=== PATIENT | female | born 1960 | race African-American/Black ===

== ENCOUNTER 2016-07-31 02:39 | Emergency (ER) | payer OTHER ==
[~2016-07-31] VITALS: Ht 170.2 cm; Wt 150.0 kg
[~2016-07-31 02:39] MED LIST: ALBU6.7H2 IH; AMLO10TA4 PO; AMLO5TAB2 PO; ASPI-1035 PO; BENA20TA77 PO; CEPH500C2 PO; CODE118S2 PO; DOCU-150 PO; DOXA2TAB2 PO; DOXA4TAB2 PO; IBUP-1509 PO; IPRA3AMP9 INH; OXYC-100 PO; TIZA4TAB4 PO; TRAM50TA3 PO
[2016-07-31 03:20] VITALS: BP 161/92
[2016-07-31] MEDS ORDERED: METHYLPREDNISOLONE SOD SUCC 125 MG/2 ML VIAL IV STA (03:35)
[2016-07-31] MEDS ORDERED: ALBUTEROL (0.083%) 2.5MG/3ML NEB HHN STA (03:35)
[2016-07-31] MEDS ORDERED: IPRATROPIUM BROMIDE (0.02%) 0.5MG/2.5ML NEB HHN STA (03:35)
[2016-07-31 03:50] LABS: BASOPHILS % 0.9 % (0.0-2.0); EOSINOPHILS % 1.1 % (0.0-5.0); HEMATOCRIT. 35.7 % (36.0-48.0); HEMOGLOBIN. 11.6 g/dL (12.0-16.0); LYMPHOCYTES % 26.2 % (20.0-50.0); MEAN CORPUSCULAR HEMOGLOBIN 27.7 pg (28.0-32.0); MEAN CORPUSCULAR VOLUME 85.8 fL (81.0-99.0); MEAN PLATELET VOLUME 8.9 fl (7.4-10.4); MONOCYTES % 10.4 % (2.0-8.0); NEUTROPHILS % 61.4 % (40.0-76.0); PLATELET 219 x1000/uL (130-400); RED BLOOD CELL COUNT 4.16 mill/uL (4.2-5.4); RED CELL DISTRIBUTION WIDTH 13.6 % (11.6-14.6)
[2016-07-31 04:07] LABS: CARBON DIOXIDE 28 mEq/L (21-32); CHLORIDE 107 mEq/L (98-107); TROPONIN I < 0.02 ng/mL (0.00-0.04)
[2016-07-31] MEDS ORDERED: ALBUTEROL (0.5%) 2.5MG/0.5ML NEB HHN ONE (04:08)
== END 2016-07-31 06:38 | disposition home or self-care (01) ==
LOC: ER 02:39
DX: J45.901 Unspecified asthma with (acute) exacerbation (principal); I50.9 Heart failure, unspecified; I11.0 Hypertensive heart disease with heart failure; J44.9 Chronic obstructive pulmonary disease, unspecified; E66.01 Morbid (severe) obesity due to excess calories; Z79.82 Long term (current) use of aspirin; Z96.659 Presence of unspecified artificial knee joint; Z96.649 Presence of unspecified artificial hip joint
CPT/HCPCS: 36415; 71010; 80048; 83880; 84484; 85025; 93005; 94644; 96374; 99285; J2930; J7611; Z7610

== ENCOUNTER 2016-08-09 09:47 | Observation (INO) | payer OTHER ==
[~2016-08-09] VITALS: Ht 170.2 cm; Wt 168.7 kg
[~2016-08-09 09:47] MED LIST changes: -ASPI-1035 PO; +ASPI-1158 PO; +FURO-152 PO; +POTA20TA82 PO
[2016-08-09 10:48] LABS: BASOPHILS % 0.7 % (0.0-2.0); EOSINOPHILS % 0.2 % (0.0-5.0); HEMATOCRIT. 41.1 % (36.0-48.0); HEMOGLOBIN. 13.1 g/dL (12.0-16.0); LYMPHOCYTES % 15.8 % (20.0-50.0); MEAN CORPUSCULAR HEMOGLOBIN 27.4 pg (28.0-32.0); MEAN CORPUSCULAR VOLUME 85.6 fL (81.0-99.0); MEAN PLATELET VOLUME 8.9 fl (7.4-10.4); MONOCYTES % 9.1 % (2.0-8.0); NEUTROPHILS % 74.2 % (40.0-76.0); PLATELET 257 x1000/uL (130-400); RED CELL DISTRIBUTION WIDTH 13.9 % (11.6-14.6)
[2016-08-09 10:50] LABS: CHLORIDE 104 mEq/L (98-107)
[2016-08-09] MEDS ORDERED: IPRATROPIUM BROMIDE (0.02%) 0.5MG/2.5ML NEB HHN STA (10:50)
[2016-08-09] MEDS ORDERED: METHYLPREDNISOLONE SOD SUCC 125 MG/2 ML VIAL IV STA (10:50)
[2016-08-09 10:51] LABS: PROTHROMBIN TIME 10.2 sec
[2016-08-09 10:59] LABS: CARBON DIOXIDE 35 mEq/L (21-32); TROPONIN I < 0.02 ng/mL (0.00-0.04)
[2016-08-09] MEDS ORDERED: KETOROLAC 30MG/ML VIAL IV ONE (11:00)
[2016-08-09 11:13] LABS: *AMPHETAMINES SCREEN URINE NEGATIVE (NEGATIVE); *BARBITURATES SCREEN URINE NEGATIVE (NEGATIVE); *BENZODIAZEPINES SCREEN URINE NEGATIVE (NEGATIVE); *COCAINE SCREEN URINE NEGATIVE (NEGATIVE); CANNABINOID URINE SCREEN NEGATIVE (NEGATIVE); METHADONE URINE SCREEN NEGATIVE (NEGATIVE); OPIATES URINE SCREEN PRESUMTIVE POSITIVE (NEGATIVE); PHENCYCLIDINE URINE SCREEN NEGATIVE (NEGATIVE)
[2016-08-09] MEDS: ALBUTEROL (0.083%) 2.5MG/3ML NEB HHN SCH ×3 (12:00→13:00)
[2016-08-09] MEDS ORDERED: ACETAMINOPHEN 325MG TABLET PO PRN (15:15)
[2016-08-09] MEDS ORDERED: ONDANSETRON HCL 4MG/2ML VIAL IV PRN (15:15)
[2016-08-09] MEDS ORDERED: CLONIDINE 0.1MG TABLET PO PRN (15:15)
[2016-08-09] MEDS ORDERED: TRAMADOL 50MG TABLET PO PRN (15:30)
[2016-08-09] MEDS: HYDROCODONE/ACETAMINOPHEN 5/325MG TABLET PO PRN ×2 (16:20→19:02)
[2016-08-09 16:45] VITALS: BP 138/79
[2016-08-09 17:00] VITALS: BP 138/79
[2016-08-09] MEDS: ASPIRIN 81MG EC TABLET PO SCH (19:02)
[2016-08-09 20:00] VITALS: BP 117/66
[2016-08-09] MEDS ORDERED: LEVOFLOXACIN 500MG PREMIX 100 ML IV SCH (20:00)
[2016-08-09] MEDS: IPRATROPIUM/ALBUTEROL 0.5-3(2.5)MG/3ML NEB INH SCH (20:46)
[2016-08-09] MEDS: ENOXAPARIN 40MG/0.4ML SYR SUBCUT SCH (21:05)
[2016-08-10] VITALS: BP 156/83
[2016-08-10] MEDS: IPRATROPIUM/ALBUTEROL 0.5-3(2.5)MG/3ML NEB INH SCH ×4 (00:23→20:41)
[2016-08-10 04:00] VITALS: BP 168/114
[2016-08-10] MEDS: HYDROCODONE/ACETAMINOPHEN 5/325MG TABLET PO PRN ×3 (05:13→18:27)
[2016-08-10 07:40] LABS: HDL CHOLESTEROL 85 mg/dL (40-59); LDL CHOLESTEROL 73 mg/dL (5-100); T4 FREE 0.88 ng/dL (0.76-1.46); TROPONIN I < 0.02 ng/mL (0.00-0.04)
[2016-08-10 08:00] VITALS: BP 134/93
[2016-08-10 08:03] LABS: BASOPHILS % 0.1 % (0.0-2.0); HEMATOCRIT. 39.5 % (36.0-48.0); HEMOGLOBIN. 12.5 g/dL (12.0-16.0); LYMPHOCYTES % 11.8 % (20.0-50.0); MEAN CORPUSCULAR HEMOGLOBIN 26.9 pg (28.0-32.0); MEAN CORPUSCULAR VOLUME 85.1 fL (81.0-99.0); MEAN PLATELET VOLUME 9.7 fl (7.4-10.4); MONOCYTES % 8.9 % (2.0-8.0); NEUTROPHILS % 79.2 % (40.0-76.0); PLATELET 249 x1000/uL (130-400); RED BLOOD CELL COUNT 4.64 mill/uL (4.2-5.4); RED CELL DISTRIBUTION WIDTH 13.5 % (11.6-14.6)
[2016-08-10] MEDS: BENAZEPRIL 20MG TABLET PO SCH (08:28)
[2016-08-10] MEDS: DOXAZOSIN MESYLATE 2MG TABLET PO SCH (08:28)
[2016-08-10] MEDS: TIZANIDINE HCL 4MG TABLET PO SCH (08:29)
[2016-08-10] MEDS: AMLODIPINE 10MG TABLET PO SCH (08:29)
[2016-08-10] MEDS: DOCUSATE SODIUM 100MG CAPSULE PO SCH (08:29)
[2016-08-10] MEDS: ASPIRIN 81MG EC TABLET PO SCH (08:29)
[2016-08-10] MEDS: ENOXAPARIN 40MG/0.4ML SYR SUBCUT SCH ×2 (08:30→20:36)
[2016-08-10 12:16] VITALS: BP 124/64
[2016-08-10 16:27] VITALS: BP 113/61
[2016-08-10 20:00] VITALS: BP 108/64
[2016-08-10] MEDS ORDERED: LEVOFLOXACIN 500MG PREMIX 100 ML IV SCH (20:00)
[2016-08-10] MEDS: GUAIFENESIN/CODEINE 100-10MG/5ML UDC PO PRN (21:05)
[2016-08-11] VITALS: BP 108/63
[2016-08-11] MEDS: HYDROCODONE/ACETAMINOPHEN 5/325MG TABLET PO PRN (01:05)
[2016-08-11] MEDS: GUAIFENESIN/CODEINE 100-10MG/5ML UDC PO PRN ×2 (02:16→11:28)
[2016-08-11] MEDS: IPRATROPIUM/ALBUTEROL 0.5-3(2.5)MG/3ML NEB INH SCH ×3 (03:25→14:39)
[2016-08-11 04:00] VITALS: BP 113/63
[2016-08-11 08:00] VITALS: BP 128/98
[2016-08-11] MEDS: TIZANIDINE HCL 4MG TABLET PO SCH (08:35)
[2016-08-11] MEDS: ENOXAPARIN 40MG/0.4ML SYR SUBCUT SCH (08:35)
[2016-08-11] MEDS: BENAZEPRIL 20MG TABLET PO SCH (08:35)
[2016-08-11] MEDS: ASPIRIN 81MG EC TABLET PO SCH (08:36)
[2016-08-11] MEDS: DOCUSATE SODIUM 100MG CAPSULE PO SCH (08:36)
[2016-08-11] MEDS: AMLODIPINE 10MG TABLET PO SCH (08:36)
[2016-08-11] MEDS: DOXAZOSIN MESYLATE 2MG TABLET PO SCH (08:42)
[2016-08-11 12:00] VITALS: BP 101/62
[2016-08-11 15:26] VITALS: BP 101/62
[2016-08-11 16:00] VITALS: BP 141/8
[2016-08-11] MEDS ORDERED: DOXAZOSIN MESYLATE 2MG TABLET PO SCH (21:00)
[2016-08-12] MEDS ORDERED: LEVOFLOXACIN 250MG TABLET PO SCH (11:00)
== END 2016-08-11 15:59 | disposition home or self-care (01) ==
LOC: ER 10:24 → INTOOBSV 15:19 → 5WST 15:19 → ENRESERV 15:41 → CANBEDREQ 16:43
PROVIDERS: ADMIT Internal Medicine; ATTEND Internal Medicine
DX: J44.1 Chronic obstructive pulmonary disease with (acute) exacerbation (principal); G89.29 Other chronic pain; I11.0 Hypertensive heart disease with heart failure; I50.32 Chronic diastolic (congestive) heart failure; I27.2 Other secondary pulmonary hypertension; M54.30 Sciatica, unspecified side; I25.2 Old myocardial infarction; E66.01 Morbid (severe) obesity due to excess calories; R11.2 Nausea with vomiting, unspecified; R07.89 Other chest pain; Z99.81 Dependence on supplemental oxygen; Z96.659 Presence of unspecified artificial knee joint; Z86.73 Personal history of transient ischemic attack (TIA), and cerebral infarction without residual deficits; Z96.649 Presence of unspecified artificial hip joint; Z82.49 Family history of ischemic heart disease and other diseases of the circulatory system
CPT/HCPCS: 36415; 71010; 80048; 80061; 80305; 83880; 84439; 84443; 84484; 85025; 85610; 93005; 93306; 94640; 94664; 96365; 96366; 96372; 96375; 99291; G0378; J1650; J1885; J1956; J2930; J7040; J7611; 96374; J7620

== ENCOUNTER 2016-08-28 06:15 | Emergency (ER) | payer OTHER ==
[~2016-08-28] VITALS: Ht 170.2 cm; Wt 165.0 kg
[2016-08-28] MEDS ORDERED: MORPHINE SULFATE 4 MG/ML CPJ (NOT FOR IM USE) IV STA (09:51)
[2016-08-28] MEDS ORDERED: ASPIRIN 81MG TABLET PO STA (09:51)
[2016-08-28] MEDS ORDERED: NITROGLYCERIN OINT 1GM/INCH UDPKT TD STA (09:51)
[2016-08-28 10:27] LABS: BASOPHILS % 0.5 % (0.0-2.0); HEMATOCRIT. 36.6 % (36.0-48.0); HEMOGLOBIN. 11.8 g/dL (12.0-16.0); LYMPHOCYTES % 19.4 % (20.0-50.0); MEAN CORPUSCULAR HEMOGLOBIN 27.4 pg (28.0-32.0); MEAN CORPUSCULAR VOLUME 85.5 fL (81.0-99.0); MEAN PLATELET VOLUME 8.4 fl (7.4-10.4); MONOCYTES % 8.4 % (2.0-8.0); NEUTROPHILS % 69.7 % (40.0-76.0); PLATELET 212 x1000/uL (130-400); RED BLOOD CELL COUNT 4.29 mill/uL (4.2-5.4); RED CELL DISTRIBUTION WIDTH 13.5 % (11.6-14.6)
[2016-08-28 10:29] LABS: CHLORIDE 103 mEq/L (98-107)
[2016-08-28 10:36] LABS: CARBON DIOXIDE 34 mEq/L (21-32); TROPONIN I < 0.02 ng/mL (0.00-0.04)
[2016-08-28 12:13] VITALS: BP 123/58
== END 2016-08-28 13:01 | disposition home or self-care (01) ==
LOC: ER 07:09
DX: L08.9 Local infection of the skin and subcutaneous tissue, unspecified (principal); I11.0 Hypertensive heart disease with heart failure; I50.9 Heart failure, unspecified; J44.9 Chronic obstructive pulmonary disease, unspecified; J45.909 Unspecified asthma, uncomplicated; M54.30 Sciatica, unspecified side; Z87.01 Personal history of pneumonia (recurrent)
CPT/HCPCS: 36415; 71010; 80053; 83605; 83690; 83880; 84484; 85025; 87040; 93005; 96374; 99285; J2270; Z7610

== ENCOUNTER 2016-09-25 06:43 | Emergency (ER) | payer OTHER ==
[~2016-09-25] VITALS: Ht 167.6 cm; Wt 180.0 kg
[2016-09-25] MEDS ORDERED: LACTULOSE 20G/30ML UDC PO ONE (07:45)
[2016-09-25] MEDS ORDERED: MORPHINE SULFATE 4 MG/ML CPJ (NOT FOR IM USE) IV ONE (09:30)
[2016-09-25 09:35] VITALS: BP 121/67
== END 2016-09-25 10:39 | disposition home or self-care (01) ==
LOC: ER 06:43
DX: K59.00 Constipation, unspecified (principal); I11.0 Hypertensive heart disease with heart failure; I50.9 Heart failure, unspecified; K21.9 Gastro-esophageal reflux disease without esophagitis; J44.9 Chronic obstructive pulmonary disease, unspecified; Z79.82 Long term (current) use of aspirin
CPT/HCPCS: 74000; 96374; 99284; J2270; Z7610

== ENCOUNTER 2017-03-27 02:21 | Emergency (ER) | payer OTHER ==
[~2017-03-27] VITALS: Ht 170.2 cm; Wt 136.0 kg
[~2017-03-27 02:21] MED LIST changes: -ALBU6.7H2 IH; +ALBU6.7H3 IH; -BENA20TA77 PO; -CEPH500C2 PO; -DOXA4TAB2 PO; +DUONEB3 ML INH; -IBUP-1509 PO; -IPRA3AMP9 INH; -OXYC-100 PO; -TRAM50TA3 PO
[2017-03-27 02:37] VITALS: BP 147/78
== END 2017-03-27 07:56 | disposition home or self-care (01) ==
LOC: ER 02:21
DX: L60.0 Ingrowing nail (principal); L03.011 Cellulitis of right finger; F17.200 Nicotine dependence, unspecified, uncomplicated; I11.0 Hypertensive heart disease with heart failure; I50.9 Heart failure, unspecified; J44.9 Chronic obstructive pulmonary disease, unspecified; K21.9 Gastro-esophageal reflux disease without esophagitis; E11.9 Type 2 diabetes mellitus without complications; Z88.0 Allergy status to penicillin; Z79.82 Long term (current) use of aspirin; Z96.649 Presence of unspecified artificial hip joint; Z96.659 Presence of unspecified artificial knee joint
CPT/HCPCS: 99283

== ENCOUNTER 2017-09-01 20:56 | Emergency (ER) | payer OTHER ==
[~2017-09-01] VITALS: Ht 170.2 cm; Wt 118.0 kg
[~2017-09-01 20:56] MED LIST changes: -ALBU6.7H3 IH; +ALBU6.7H9 IH
[2017-09-02] MEDS ORDERED: ASPIRIN 81MG TABLET PO STA (01:52)
[2017-09-02] MEDS ORDERED: IPRATROPIUM BROMIDE (0.02%) 0.5MG/2.5ML NEB HHN STA (01:52)
[2017-09-02] MEDS ORDERED: ALBUTEROL (0.083%) 2.5MG/3ML NEB HHN STA (01:52)
[2017-09-02] MEDS ORDERED: SODIUM CHLORIDE 0.9% 1,000 ML IV ONE (01:52)
[2017-09-02] MEDS ORDERED: METHYLPREDNISOLONE SOD SUCC 125 MG/2 ML VIAL IV STA (01:52)
[2017-09-02] MEDS ORDERED: ACETAMINOPHEN 500MG TABLET PO STA (01:52)
[2017-09-02] MEDS ORDERED: LEVOFLOXACIN 250MG TABLET PO ONE (02:00)
[2017-09-02] MEDS ORDERED: IPRATROPIUM/ALBUTEROL 0.5-3(2.5)MG/3ML NEB ONE (02:36)
[2017-09-02] MEDS ORDERED: ALBUTEROL (0.5%) 2.5MG/0.5ML NEB HHN ONE (02:37)
[2017-09-02 02:41] LABS: BASOPHILS % 0.6 % (0.0-2.0); EOSINOPHILS % 1.8 % (0.0-5.0); HEMATOCRIT. 38.6 % (36.0-48.0); HEMOGLOBIN. 12.4 g/dL (12.0-16.0); LYMPHOCYTES % 38.4 % (20.0-50.0); MEAN CORPUSCULAR HEMOGLOBIN 27.7 pg (28.0-32.0); MEAN CORPUSCULAR VOLUME 86.4 fL (81.0-99.0); MEAN PLATELET VOLUME 9.2 fl (7.4-10.4); MONOCYTES % 9.4 % (2.0-8.0); NEUTROPHILS % 49.8 % (40.0-76.0); PLATELET 258 x1000/uL (130-400); RED BLOOD CELL COUNT 4.47 mill/uL (4.2-5.4); RED CELL DISTRIBUTION WIDTH 13.4 % (11.6-14.6)
[2017-09-02 02:42] LABS: CHLORIDE 106 mEq/L (98-107)
[2017-09-02 02:46] LABS: PARTIAL THROMBOPLASTIN TIME 32.5 sec (23.4-31.0); PROTHROMBIN TIME 10.3 sec (9.4-11.6)
[2017-09-02] MEDS ORDERED: DIPHENHYDRAMINE 50MG/ML VIAL IV ONE (03:00)
[2017-09-02] MEDS ORDERED: KETOROLAC 15MG/ML VIAL IV ONE (03:15)
[2017-09-02 03:30] VITALS: BP 126/60
== END 2017-09-02 04:50 | disposition home or self-care (01) ==
LOC: ER 20:56
DX: J44.1 Chronic obstructive pulmonary disease with (acute) exacerbation (principal); I50.9 Heart failure, unspecified; J18.9 Pneumonia, unspecified organism; M54.30 Sciatica, unspecified side; Z88.0 Allergy status to penicillin
CPT/HCPCS: 36415; 71045; 80053; 83605; 83690; 83880; 84484; 85025; 85610; 85730; 87040; 93005; 94644; 96374; 96375; 99285; J1200; J1885; J2930; J7030; J7611; J7620

== ENCOUNTER 2018-05-15 09:41 | Emergency (ER) | payer OTHER ==
[~2018-05-15] VITALS: Ht 170.2 cm; Wt 145.0 kg
[2018-05-15 09:48] VITALS: BP 140/69
== END 2018-05-15 11:06 | disposition left against medical advice (07) ==
LOC: ER 09:41
DX: Z53.21 Procedure and treatment not carried out due to patient leaving prior to being seen by health care provider (principal); R06.02 Shortness of breath; R07.9 Chest pain, unspecified
CPT/HCPCS: 93005